=== PATIENT | male | born 1985 | race Caucasian/White ===

== ENCOUNTER 2017-01-09 22:18 | Emergency (ER) | payer BC ==
[~2017-01-09] VITALS: Ht 188 cm; Wt 159.1 kg
[~2017-01-09 22:18] MED LIST: DEPO-TESTOS100 MG/ML IM; SINGULAIR 110 MG/TAB PO; ZYRTEC 10MG10 MG PO
[2017-01-09] MEDS ORDERED: LIPITOR 10MG10 MG PO (22:36)
[2017-01-09] MEDS ORDERED: NORVASC 10MG10 MG PO (22:37)
[2017-01-09] MEDS ORDERED: PRINZIDE 12.5 M1 TA1 PO (22:37)
[2017-01-09 22:49] LABS: BASO # 0.1 (0.0-0.2); BASO % 0.4 % (0.0-2.0); EOS # 0.3 (0.0-0.7); EOS % 2.2 % (0-4.0); GRAN # 8.1 (1.4-6.5); GRAN % 72.6 % (42.2-75.2); HEMOGLOBIN 15.3 g/dl (13.5-18.0); LYMPH # 1.6 (1.2-3.4); LYMPH % 14.7 % (20.0-51.0); MEAN CELL VOLUME 92 fl (80.0-100.0); MEAN CORPUSCULAR HEMOGLOBIN 32 pg (27.0-31.0); MEAN CORPUSCULAR HGB CONC 35 g/dl (33.0-37.0); MEAN PLATELET VOLUME 10.1 fl (7.4-10.4); MONO # 1.1 (0.1-0.6); MONO % 9.8 % (1.7-9.3); PLATELET COUNT 229 K/mm3 (130-400); RED BLOOD COUNT 4.76 M/mm3 (4.20-5.60); REDCELL DISTRIBUTION WIDTH-CV 12.7 % (11.5-14.5); WHITE BLOOD COUNT 11.2 K/mm3 (4.8-10.8)
[2017-01-09 22:58] LABS: CALCIUM 9.7 mg/dL (8.4-10.2); CREATININE, serum 1.05 mg/dL (0.66-1.25); POTASSIUM 3.5 mmol/L (3.4-5.0)
[2017-01-09 23:15] LABS: PROLACTIN 24.6 ng/mL (3.7-17.9)
[2017-01-10 00:13] VITALS: BP 140/85; PULSE 70; TEMP 97.4
== END 2017-01-10 00:05 | disposition home or self-care (01) ==
LOC: COL.ER 22:18
PROVIDERS: Emergency Medicine
DX: R55 Syncope and collapse (principal); I10 Essential (primary) hypertension

== ENCOUNTER → 2022-04-12 | Outpatient (CLI) | payer BC ==
[~2022-04-12] MED LIST changes: +LIPITOR 10MG10 MG PO; +NORVASC 10MG10 MG PO; +PRINZIDE 12.5 M1 TA1 PO
== END ==
LOC: COL.RAD 13:51
DX: R51.9 Headache, unspecified (principal)

== ENCOUNTER 2024-05-02 18:54 | Emergency (ER) | payer BC ==
[~2024-05-02] VITALS: Ht 185.4 cm; Wt 171.8 kg
[2024-05-02 18:59] VITALS: BP 157/90; TEMP 98.3
[2024-05-02] MEDS ORDERED: Erythromycin 0.5% Ophth Oint 3.5 GM TUBE OP ONE (19:45)
[2024-05-02 20:23] VITALS: PULSE 57
== END 2024-05-02 20:18 | disposition home or self-care (01) ==
LOC: COL.ER 18:54
DX: S05.02XA Injury of conjunctiva and corneal abrasion without foreign body, left eye, initial encounter (principal); Z77.098 Contact with and (suspected) exposure to other hazardous, chiefly nonmedicinal, chemicals; X58.XXXA Exposure to other specified factors, initial encounter; Y92.89 Other specified places as the place of occurrence of the external cause; Y99.0 Civilian activity done for income or pay